=== PATIENT | male | born 1975 | race Caucasian/White ===

== ENCOUNTER → 2016-12-22 | Outpatient (CLI) | payer BC ==
[~2016-12-22] MED LIST: Iopamidol 755 MG/ML 500 ML Multipack Bottle IVPUSH STA
--- NOTE | 2016-12-22 16:12 | CT ---
EXAMINATION: CT soft tissue neck with contrast HISTORY: Swelling COMPARISON: None TECHNIQUE: Axial CT images obtained through the neck following the administration of 75 mL of Isovue -370. Coronal and sagittal reconstructions obtained. FINDINGS: The oropharyngeal and nasopharyngeal mucosal structures appear symmetric. The hypopharynx appears normal. The larynx and upper trachea appear unremarkable. The parotid and submandibular glan ds are normal. No bulky cervical lymphadenopathy. Within the region of concern there is an asymmetri c subcutaneous area of fat measuring 3.8 x 2.3 cm likely representing a lipoma. There is a small muc ous retention cyst within the right maxillary sinus. Mastoid air cells and middle ears are clear. Th e visualized osseous structures appear normal. The lung apices are clear. IMPRESSION: 1. There is a 3.8 x 2.3 cm lipoma inferior to the right parotid gland within the region of concern.
== END ==
LOC: MW.CT 13:05
PROVIDERS: ATTEND Plastic Surgery
DX: D17.0 Benign lipomatous neoplasm of skin and subcutaneous tissue of head, face and neck (principal); R22.0 Localized swelling, mass and lump, head
CPT/HCPCS: 70491; Q9967

== ENCOUNTER 2017-08-12 07:23 | Day surgery (SDC) | payer BC ==
[~2017-08-12 07:23] MED LIST changes: +Bupivacaine 25%/EPINEPHrine/PF 30 ML ONE; -Iopamidol 755 MG/ML 500 ML Multipack Bottle IVPUSH STA; +Lidocaine 2% 5 ML SDV ONE; +Midazolam 1 MG/ML 2 ML SDV ONE; +Propofol 200 MG/20 ML SDV ONE; +fentaNYL 100 MCG/2 ML SDV ONE
--- NOTE | 2017-08-12 07:52 | PCM.PREANE ---
Preanesthetic Assessment - Anesthesia/Transfusion/Family Hx Anesthesia History: Prior Anesthesia Without Reaction Family History of Anesthesia Reaction: No Transfusion History: No Prior Transfusion(s) Intubation History: Unknown - Review of Systems General: No Symptoms Pulmonary: No Symptoms Cardiovascular: No Symptoms Gastrointestinal: No Symptoms Neurological: No Symptoms Other: Reports: None - Physical Assessment Height: 1.8 m Weight: 93.44 kg ASA Class: 2 Dentition: Reports: Normal Dentition (retainer at the bottom) Thyro-Mental Finger Breadths: 3 Mouth Opening Finger Breadths: 2 ROM/Head Extension: Full Lungs: Clear to Auscultation, Normal Respiratory Effort Cardiovascular: Regular Rate, Regular Rhythm - Allergies Allergies/Adverse Reactions: Allergies Allergy/AdvReac Type Severity Reaction Status Date / Time No Known Allergies Allergy Verified 08/10/17 16:52 - Blood Blood Available: No - Anesthesia Plan Pre-Op Medication Ordered: None - Acknowledgements Anesthesia Type Planned: General Anesthesia Pt an Appropriate Candidate for the Planned Anesthesia: Yes Alternatives and Risks of Anesthesia Discussed w Pt/Guardian: Yes Pt/Guardian Understands and Agrees with Anesthesia Plan: Yes PreAnesthesia Questionnaire Other HEENT History: hx of fx nose Respiratory History: Reports: Other (See Below) (questionable sleep apnea- advised to go to be tested for it) Neurological History: Reports: Concussion, Head Trauma, Other (See Below) (h/o evacuation of intracranial hematoma > 20 years ago following head injury) - Past Surgical History Head Surgeries/Procedures: Reports: Craniotomy (for evacuation of intracranial hematoma) HEENT Surgical History: Reports: Tonsillectomy Neurological Surgical History: Reports: Other (See Below) Other Neurological Surgeries/Procedures: had excision of a hematoma on his skull Dermatological Surgical History: Reports: Other (See Below) (bilat CTR) - SUBSTANCE USE Smoking Status *Q: Current Every Day Smoker Tobacco Use Within Last Twelve Months: Cigarettes Recreational Drug Use History: No - HOME MEDS Home Medications: Home Meds . [No Known Home Meds] 08/10/17 [History] - CURRENT (IN HOUSE) MEDS Current Meds: Current Medications Hydrocodone Bitart/Acetaminophen ([place] 325-5 Mg) 1 tab PO Q4H PRN PRN Reason: Pain Bupivacaine HCl/Epinephrine Bitart (Marcaine 0.25%/Epinephrine 1:200,000) 10 ml INJECT ONETIME ONE Stop: 08/12/17 09:01 Cefazolin Sodium/Dextrose 2 gm (/ Premix) 50 mls @ 100 mls/hr IV ONETIME ONE Stop: 08/12/17 08:29 Lactated Ringer's (Ringers, Lactated) 1,000 mls @ 125 mls/hr IV ASDIRECTED DEANDRA Last Admin: 08/12/17 07:42 Dose: 125 mls/hr Discontinued Medications Fentanyl (Sublimaze) Confirm Administered Dose 100 mcg .ROUTE .STK-MED ONE Stop: 08/12/17 07:13 Bupivacaine HCl/Epinephrine Bitart (Sensorc Mpf 0.25%-Epi 1:[id number]) Confirm Administered Dose 30 mls @ as directed .ROUTE .STK-MED ONE Stop: 08/12/17 07:15 Lidocaine (Xylocaine-Mpf 2%) Confirm Administered Dose 5 ml .ROUTE .STK-MED ONE Stop: 08/12/17 07:13 Midazolam HCl (Versed 1 Mg/Ml) Confirm Administered Dose 2 mg .ROUTE .STK-MED ONE Stop: 08/12/17 07:13 Propofol (Diprivan 20 Ml) Confirm Administered Dose 400 mg .ROUTE .STK-MED ONE Stop: 08/12/17 07:13
[2017-08-12] MEDS ORDERED: Lactated Ringers 1,000 ML IV SCH (08:00)
[2017-08-12] MEDS ORDERED: ceFAZolin 2 GM in Premix Bag 1 BAG IV ONE (08:00)
[2017-08-12] MEDS ORDERED: Bupivacaine 0.25%/EPINEPHrine 1:200,000 10 ML SDV INJECT ONE (09:00)
[2017-08-12] MEDS ORDERED: Acetaminophen/HYDROcodone 325-5 MG Tab PO PRN (09:00)
[2017-08-12] MEDS ORDERED: ceFAZolin 1 GM Vial ONE (09:23)
[2017-08-12] MEDS ORDERED: Dexamethasone 4 MG/ML 5 ML MDV ONE (10:01)
[2017-08-12] MEDS ORDERED: HYDROmorphone 2 MG/ML Syringe ONE (10:04)
[2017-08-12] MEDS ORDERED: Ondansetron 4 MG/2 ML SDV ONE (10:17)
[2017-08-12] MEDS ORDERED: fentaNYL 100 MCG/2 ML SDV IVPUSH PRN (10:42)
--- NOTE | 2017-08-13 15:28 | PCM.OPNOTE ---
- General Post-Op/Procedure Note Date of Surgery/Procedure: 08/12/17 Operative Procedure(s): excision of right neck lipoma 5cm - involving platysma Pre Op Diagnosis: right neck lipoma Post-Op Diagnosis: Same Anesthesia Technique: General LMA Primary Surgeon: Marlys Boucher Associate Creative Director: Lydia Ring Pathology: right neck lipoma Complications: None Condition: Good Free Text/Narrative:: [id number]
--- NOTE | 2017-08-13 19:20 | OR ---
SURGEON: JOSE ALFREDO HUSAIN MD DATE OF PROCEDURE: 08/12/2017 PREOPERATIVE DIAGNOSIS: Right neck lipoma. POSTOPERATIVE DIAGNOSIS: Right neck lipoma. PROCEDURES: Excision of right neck lipoma involving the platysmal layer, 5 cm2. TELEPHONE SERVICE REPRESENTATIVE: EMILY Miller INDICATIONS: Mr. Yepez is a 41-year-old gentleman with a right neck mass. It has been there for several years and has continued to cause problems. A scan demonstrated lipomatous mass and excision was discussed with him. Risks were including, but not limited to, bleeding, infection, damage to underlying or overlying structures, possible need for future interventions, possible scarring. PROCEDURE IN DETAIL: After informed consent was obtained and placed on the chart, the patient was brought to the operating theater in supine position. After adequate general anesthesia was obtained, the area was prepped and draped and a time-out was completed to confirm the side and site. After an adequate anesthesia and injection of local anesthesia, a 15 blade was used to dissect through the skin and the subcutaneous tissues with a Littler scissor, taking care to protect any distal neurovascular branches. Once adequately dissected circumferentially, which took some effort as it was fused to the underlying platysmal layer, meticulous hemostasis was obtained and the lipoma was sent for pathology. The platysmal layer was hemostased meticulously and then copiously irrigated. A small layer of deep closure was attempted and then a running interrupted 4-0 subcuticular stitch was placed in the right chin area. Meticulous hemostasis was obtained prior to closure, and then wound was dressed with a Steri-Strip and then Tegaderm border. The patient tolerated this well and all counts and needles were correct at the end the case. FOLLOWUP INSTRUCTIONS: The patient will see us in 10 to 14 days sooner if any problems, questions, or concerns. HEGGTHE / MODL /[id number] MTDD
== END 2017-08-12 12:00 | disposition home or self-care (01) ==
LOC: MW.SDS 07:23
PROVIDERS: ATTEND Plastic Surgery
DX: D17.0 Benign lipomatous neoplasm of skin and subcutaneous tissue of head, face and neck (principal); F17.210 Nicotine dependence, cigarettes, uncomplicated; Z90.89 Acquired absence of other organs; Z98.890 Other specified postprocedural states
CPT/HCPCS: 21554; 88304; J0690; J1100; J1170; J2250; J2405; J3010; J7120; 00300; J2704

== ENCOUNTER 2017-12-11 04:44 | Emergency (ER) | payer BC ==
[2017-12-11 05:32] LABS: CHLORIDE,CL 100 mmol/L (98-110); SODIUM,NA 138 mmol/L (136-146)
--- NOTE | 2017-12-11 06:28 | EDM.PDOC ---
ED HPI GENERAL MEDICAL PROBLEM - General Chief Complaint: Lower Extremity Injury/Pain Stated Complaint: RIGHT KNEE PAIN Time Seen by Provider: 12/11/17 05:57 - History of Present Illness INITIAL COMMENTS - FREE TEXT/NARRATIVE: HISTORY AND PHYSICAL: History of present illness: Patient 42-year-old white male transferred concern of right knee pain patient states he does eat lots of beninese mota foods and does drink alcohol consistently. He denies history of known gout been no trauma no fever chills nausea vomiting or other complaints Review of systems: As per history of present illness and below otherwise all systems reviewed and negative. Past medical history: As per history of present illness and as reviewed below otherwise noncontributory. Surgical history: As per history of present illness and as reviewed below otherwise noncontributory. Social history: No reported history of drug or alcohol abuse. Family history: As per history of present illness and as reviewed below otherwise noncontributory. Physical exam: HEENT: Atraumatic, normocephalic, pupils reactive, negative for conjunctival pallor or scleral icterus, mucous membranes moist, throat clear, neck supple, nontender, trachea midline. Lungs: Clear to auscultation, breath sounds equal bilaterally, chest nontender. Heart: S1S2, regular, negative for clicks, rubs, or JVD. Abdomen: Soft, nondistended, nontender. Negative for masses or hepatosplenomegaly. Negative for costovertebral tenderness. Pelvis: Stable nontender. Genitourinary: Deferred. Rectal: Deferred. Extremities: Tenderness to palpation in his right knee is with some associated warmth there is no significant erythema neurovascular exams unremarkable Neuro: Awake, alert, oriented. Cranial nerves II through XII unremarkable. Cerebellum unremarkable. Motor and sensory unremarkable throughout. Exam nonfocal. Diagnostics: CBC CMP uric acid x-ray right knee Therapeutics: None Impression: #1 right knee pain probable gouty arthritis #2 old incidental radiopaque foreign body soft tissue noted distal right thigh Definitive disposition and diagnosis as appropriate pending reevaluation and review of above. Treatments MAGICIAN/ILLUSIONIST: Reports: Other Medication(s) right knee Pain Score (Numeric/FACES): 10 - Related Data Allergies Allergy/AdvReac Type Severity Reaction Status Date / Time No Known Allergies Allergy Verified 12/11/17 04:55 Home Meds: Home Meds Acetaminophen/HYDROcodone [[place] 325-5 MG] 1 tab PO Q4H PRN #30 tablet 08/12/17 [Rx] Past Medical History Other HEENT History: hx of fx nose Cardiovascular History: Reports: None Respiratory History: Reports: None Gastrointestinal History: Reports: None Genitourinary History: Reports: None Musculoskeletal History: Reports: None Neurological History: Reports: Concussion, Head Trauma Psychiatric History: Reports: None Endocrine/Metabolic History: Reports: None Hematologic History: Reports: None Immunologic History: Reports: None Oncologic (Cancer) History: Reports: None Dermatologic History: Reports: None - Infectious Disease History Infectious Disease History: Reports: Chicken Pox - Past Surgical History Head Surgeries/Procedures: Reports: Craniotomy HEENT Surgical History: Reports: Tonsillectomy Neurological Surgical History: Reports: Other (See Below) Other Neurological Surgeries/Procedures: had excision of a hematoma on his skull Social & Family History - Family History Family Medical History: Noncontributory Musculoskeletal: Reports: Arthritis Other Musculoskeletal Family History: Father - Tobacco Use Smoking Status *Q: Current Every Day Smoker Years of Tobacco use: 20 Packs/Tins Daily: 1 - Recreational Drug Use Recreational Drug Use: No Drug Use in Last 12 Months: No Review of Systems - Review of Systems Review Of Systems: ROS reveals no pertinent complaints other than HPI. ED EXAM, GENERAL - Physical Exam Exam: See Below (See dictation) Course - Vital Signs Last Recorded V/S: Last Vital Signs Temp 36.5 C 12/11/17 04:55 Pulse 71 12/11/17 04:55 Resp 18 12/11/17 04:55 BP 134/74 12/11/17 04:55 Pulse Ox 98 12/11/17 04:55 - Orders/Labs/Meds Orders: Active Orders 24 hr Category Date Time Status Knee 3V Rt [CR] Stat Exams 12/11/17 05:00 Taken Labs: Laboratory Tests 12/11/17 12/11/17 Range/Units 05:07 05:07 WBC 12.07 H (4.0-11.0) K/uL RBC 5.31 (4.50-5.90) M/uL Hgb 16.6 (13.0-17.0) g/dL Hct 46.5 (38.0-50.0) % MCV 87.6 (80.0-98.0) fL MCH 31.3 (27.0-32.0) pg MCHC 35.7 (31.0-37.0) g/dL RDW Std Deviation 42.1 (28.0-62.0) fl RDW Coeff of Hemal 13 (11.0-15.0) % Plt Count 197 (150-400) K/uL MPV 10.20 (7.40-12.00) fL Neut % (Auto) 75.3 (48.0-80.0) % Lymph % (Auto) 13.2 L (16.0-40.0) % [place] % (Auto) 10.2 (0.0-15.0) % Eos % (Auto) 0.8 (0.0-7.0) % Baso % (Auto) 0.5 (0.0-1.5) % Neut # (Auto) 9.1 H (1.4-5.7) K/uL Lymph # (Auto) 1.6 (0.6-2.4) K/uL [place] # (Auto) 1.2 H (0.0-0.8) K/uL Eos # (Auto) 0.1 (0.0-0.7) K/uL Baso # (Auto) 0.1 (0.0-0.1) K/uL Nucleated RBC % 0.0 /100WBC Nucleated RBCs # 0 K/uL Sodium 138 (136-146) mmol/L Potassium 3.8 (3.5-5.1) mmol/L Chloride 100 (98-110) mmol/L Carbon Dioxide 25 (21-31) mmol/L BUN 25 H (6.0-23.0) mg/dL Creatinine 0.9 (0.6-1.5) mg/dL Est Cr Clr Drug Dosing 112.72 mL/min Estimated GFR (MDRD) > 60.0 ml/min Glucose 104 (60-110) mg/dL Uric Acid 8.3 H (2.1-7.4) mg/dL Calcium 9.3 (8.8-10.8) mg/dL Total Bilirubin 0.6 (0.1-1.5) mg/dL AST 28 (5-40) IU/L ALT 56 H (8-54) IU/L Alkaline Phosphatase 95 (40-150) Total Protein 7.0 (6.0-8.0) g/dL Albumin 4.5 (3.5-5.0) g/dL Globulin 2.5 (2.0-3.5) g/dL Albumin/Globulin Ratio 1.8 (1.3-2.8) Departure - Departure Time of Disposition: 06:26 Disposition: Home, Self-Care 01 Condition: Good Clinical Impression: Knee pain, Gout - Discharge Information Instructions: Gout, [id number] Referrals: PCP,None [Primary Care Provider] - Forms: ED Department Discharge Additional Instructions: The following information is given to patients seen in the emergency department who are being discharged to home. This information is to outline your options for follow-up care. We provide all patients seen in our emergency department with a follow-up referral. The need for follow-up, as well as the timing and circumstances, are variable depending upon the specifics of your emergency department visit. If you don't have a primary care physician on staff, we will provide you with a referral. We always advise you to contact your personal physician following an emergency department visit to inform them of the circumstance of the visit and for follow-up with them and/or the need for any referrals to a consulting specialist. The emergency department will also refer you to a specialist when appropriate. This referral assures that you have the opportunity for followup care with a specialist. All of these measure are taken in an effort to provide you with optimal care, which includes your followup. Under all circumstances we always encourage you to contact your private physician who remains a resource for coordinating your care. When calling for followup care, please make the office aware that this follow-up is from your recent emergency room visit. If for any reason you are refused follow-up, please contact the [facility] emergency department at and asked to speak to the emergency department charge nurse. [facility] Special[facility] - Orthopedic Clinic Professional Building [address] [place] [address], [address] [place] [address] Indomethacin as prescribed avoid alcohol dietary considerations as discussed call to schedule appointment with orthopedic clinic above and return as needed as discussed - My Orders Last 24 Hours: My Active Orders 12/11/17 05:00 Knee 3V Rt [CR] Stat - Assessment/Plan Last 24 Hours: My Active Orders 12/11/17 05:00 Knee 3V Rt [CR] Stat
--- NOTE | 2017-12-11 16:08 | CR ---
EXAM DATE: 12/11/17 PATIENT'S AGE: 42 Patient: MAYE RAMESH Facility: [place], [place] Site . Site : 1975 Study: XRay Knee Right [id number]/23/2018 5:32:54 AM Ordering Physician: Doctor Linares Final Report: INDICATION: Pain TECHNIQUE: Three views right knee COMPARISON: None FINDINGS: Bones: Alignment is normal. No fractures or bone lesions. Joint spaces: Unremarkable. Soft tissues: 3 millimeter radiopaque foreign body in the soft tissues anterior and medial to the distal femur. IMPRESSION: 3 millimeter radiopaque foreign body in the soft tissues anterior and medial to the distal femur otherwise unremarkable right knee. Dictated by Willard Culver MD @ 12/11/2017 5:36:06 AM Dictated by: Willard Culver MD @ 12/11/2017 05:36:11 (Electronic Signature) Report Signed by Proxy. KATERINA
== END 2017-12-11 06:52 | disposition home or self-care (01) ==
LOC: MW.ED 04:44
DX: M25.561 Pain in right knee (principal); M10.9 Gout, unspecified; M79.5 Residual foreign body in soft tissue; F17.210 Nicotine dependence, cigarettes, uncomplicated
CPT/HCPCS: 36415; 73562-26-RT; 73562-RT; 80053; 84550; 85025; 99283

== ENCOUNTER 2022-08-28 06:24 | Emergency (ER) | payer BC ==
[2022-08-28] MEDS ORDERED: Ketorolac 30 MG/ML SDV IM STA (06:41)
[2022-08-28] MEDS ORDERED: Lidocaine 1% 5 ML VIAL INJECT ONE (07:18)
== END 2022-08-28 09:03 | disposition home or self-care (01) ==
LOC: MW.ED 06:24
DX: M25.462 Effusion, left knee (principal)
CPT/HCPCS: 73562; 96372; 99283; J1885

== ENCOUNTER 2024-11-01 18:12 | Emergency (ER) | payer BC ==
[2024-11-01] MEDS: Diazepam 5 MG Tab PO ONE (19:45)
[2024-11-01] MEDS: Amoxicillin 500 MG Cap PO ONE (19:45)
== END 2024-11-01 20:59 | disposition home or self-care (01) ==
LOC: MW.ED 18:12
DX: R42 Dizziness and giddiness (principal); Z90.89 Acquired absence of other organs; Z79.52 Long term (current) use of systemic steroids; Z79.899 Other long term (current) drug therapy
CPT/HCPCS: 99283; A9270

== ENCOUNTER 2024-11-23 19:34 | Emergency (ER) | payer BC ==
[2024-11-23] MEDS ORDERED: Sodium Chloride 0.9% 10 ML Syringe FLUSH PRN (19:55)
[2024-11-23] MEDS ORDERED: Sodium Chloride 0.9% 20 ML SDV IV PRN (19:55)
[2024-11-23] MEDS ORDERED: Sodium Chloride 0.9% 2.5 ML Syringe FLUSH PRN (19:55)
[2024-11-23 20:04] LABS: BASOPHILS ABSOLUTE AUTO 0.06 K/uL (0.00-0.20); BASOPHILS PERCENT AUTO 0.7 % (0.0-1.0); EOSINOPHILS ABSOLUTE AUTO 0.09 K/uL (0.00-0.45); EOSINOPHILS PERCENT AUTO 1.1 % (0.0-6.0); HEMATOCRIT 48.2 % (42.0-52.0); HEMOGLOBIN 17.3 g/dL (14.0-18.0); IMMATURE GRAN ABSOLUTE AUTO 0.07 K/uL (0.00-0.05); IMMATURE GRAN PERCENT AUTO 0.9 % (0.0-0.4); LYMPHOCYTES ABSOLUTE AUTO 1.62 K/uL (1.00-4.80); LYMPHOCYTES PERCENT AUTO 20.1 % (24.0-44.0); MEAN CORPUSCULAR HEMOGLOBIN 30.6 pg (28.0-32.0); MEAN CORPUSCULAR HGB CONC 35.9 g/dL (32.0-36.0); MEAN CORPUSCULAR VOLUME 85.2 fL (83.0-99.0); MEAN PLATELET VOLUME 9.1 fL (9.4-12.4); MONOCYTES ABSOLUTE AUTO 0.53 K/uL (0.00-0.80); MONOCYTES PERCENT AUTO 6.6 % (0.0-8.0); NEUTROPHILS PERCENT AUTO 70.6 % (41.0-71.0); PLATELET COUNT,PLT 188 K/uL (150-400); RED BLOOD CELL COUNT 5.66 M/uL (4.52-5.90); WHITE BLOOD CELL COUNT,WBC 8.07 K/uL (3.9-11.3)
[2024-11-23 20:18] LABS: PTT,PARTIAL THROMBOPLSTIN TIME 28.5 SEC (23.9-30.7)
[2024-11-23 20:26] LABS: A/G RATIO 1.3 (0.9-1.6); BILIRUBIN TOTAL 0.5 mg/dL (0.2-1.0); CALCIUM 9.2 mg/dL (8.5-10.1); CARBON DIOXIDE,CO2 21.5 mmol/L (21.0-32.0); CREATININE 0.8 mg/dL (0.8-1.3); EST CRCL DRUG DOSING (CG) 117.66 mL/min; POTASSIUM,K 4.5 mmol/L (3.5-5.1); PROTEIN TOTAL,TP 7.2 g/dL (6.4-8.2)
[2024-11-23] MEDS ORDERED: Promethazine 25 MG/ML SDV IM PRN (20:36)
[2024-11-23] MEDS ORDERED: Dexamethasone 4 MG/ML SDV IVPUSH ONE (20:38)
[2024-11-23 20:56] LABS: MAGNESIUM 2.2 mg/dL (1.8-2.4)
[2024-11-23] MEDS: Ondansetron 4 MG/2 ML SDV IVPUSH ONE (20:57)
[2024-11-23] MEDS: Sodium Chloride 0.9% 1,000 ML IV ONE (20:57)
[2024-11-23] MEDS: Iopamidol 755 Mg/ML 100 ML Bottle IVPUSH ONE (21:31)
[2024-11-23 21:32] LABS: APPEARANCE,URINE CLEAR; BILIRUBIN,URINE NEGATIVE (NEGATIVE); COLOR,URINE YELLOW; GLUCOSE,URINE NEGATIVE (NEGATIVE); KETONES,URINE NEGATIVE (NEGATIVE); LEUKOCYTE ESTERASE,URINE NEGATIVE (NEGATIVE); NITRITE,URINE NEGATIVE (NEGATIVE); OCCULT BLOOD,URINE NEGATIVE (NEGATIVE); PROTEIN,URINE NEGATIVE (NEGATIVE); UROBILINOGEN,URINE <2.0 EU/dL (<2.0)
[2024-11-23 21:38] LABS: AMPHETAMINES SCREEN, URINE NEGATIVE (CUTOFF=500); BARBITURATE SCREEN,URINE NEGATIVE (CUTOFF=200); BENZODIAZEPINES SCREEN,URINE NEGATIVE (CUTOFF=150); BUPRENORPHINE SCREEN,URINE NEGATIVE (CUTOFF=10); METHADONE SCREEN, URINE NEGATIVE (CUTOFF=200); METHAMPHETAMINES SCREEN, URINE NEGATIVE (CUTOFF=500); OXYCODONE SCREEN,URINE NEGATIVE (CUT0FF=100); PCP SCREEN,URINE NEGATIVE (CUTOFF=25); THC SCREEN,URINE 20 NG/ML NEGATIVE (CUTOFF=50)
[2024-11-23] MEDS ORDERED: Orphenadrine 60 MG/2 ML Inj IM ONE (22:25)
== END 2024-11-23 22:28 | disposition home or self-care (01) ==
LOC: MW.ED 19:34
DX: R42 Dizziness and giddiness (principal); H81.399 Other peripheral vertigo, unspecified ear; G51.8 Other disorders of facial nerve; R27.0 Ataxia, unspecified; R03.0 Elevated blood-pressure reading, without diagnosis of hypertension; Z87.828 Personal history of other (healed) physical injury and trauma
CPT/HCPCS: 36415; 70450; 70496; 70498; 80053; 80305; 80307; 81003; 82947; 83735; 85025; 85610; 85730; 93005; 96361; 96374; 96375; 99284; J1100; J2405; J7030; Q9967; 93010